=== PATIENT | female | born 1940 | race Caucasian/White ===

== ENCOUNTER 2016-10-14 11:21 | Emergency (ER) | END 2016-10-14 18:42 | disposition home or self-care (01) | DX: R51 Headache (principal); R40.2252 Coma scale, best verbal response, oriented, at arrival to emergency department; R42 Dizziness and giddiness; R40.2142 Coma scale, eyes open, spontaneous, at arrival to emergency department; R40.2362 Coma scale, best motor response, obeys commands, at arrival to emergency department; R07.9 Chest pain, unspecified | CPT/HCPCS: 70450; 71010; 80048; 80307; 81001; 83036; 84484; 85025; 85610; 85730; 93005; 96374; 96375; 99285; J2270; J2405 ==